=== PATIENT | male | born 1985 | race African-American/Black ===

== ENCOUNTER 2017-04-15 03:00 | Emergency (ER) | payer SELFPAY ==
[~2017-04-15] VITALS: Ht 188 cm; Wt 141.0 kg
[2017-04-15 06:00] VITALS: BP 131/63
== END 2017-04-15 06:05 | disposition home or self-care (01) ==
LOC: ER 03:09
DX: R53.1 Weakness (principal); F17.210 Nicotine dependence, cigarettes, uncomplicated; Z88.2 Allergy status to sulfonamides
CPT/HCPCS: 99283; Z7610